=== PATIENT | male | born 1995 | race African-American/Black ===

== ENCOUNTER 2021-09-01 12:38 | Outpatient (CLI) | payer OTHER | END 2021-09-01 12:39 | disposition home or self-care (01) | LOC: BICRAD 12:38 | PROVIDERS: ATTEND Surgery | DX: V87.7XXA Person injured in collision between other specified motor vehicles (traffic), initial encounter (principal); S22.32XA Fracture of one rib, left side, initial encounter for closed fracture; R91.8 Other nonspecific abnormal finding of lung field | CPT/HCPCS: 71046 ==